=== PATIENT | male | born 1985 | race Caucasian/White ===

== ENCOUNTER 2016-11-26 09:30 | Emergency (ER) | payer BC, SELFPAY ==
[~2016-11-26 09:30] MED LIST: ACET-654 PO; ADVI200C5 PO; AUGM875T27 PO; BACITAB3 PO; KEPP1TAB2 PO; NICO21PAT TD; ZEST1TAB7 PO
[2016-11-26] MEDS ORDERED: NORCO, ANEXSIA 5/325MG TABLET (HYDROcodone/ACETAMINOPHEN) As Ordered ONE (10:23)
--- NOTE | 2016-11-26 11:21 | REP ---
LEFT SHOULDER, THREE VIEWS: HISTORY: Trauma. There is no acute fracture or dislocation. The joint spaces are normal in appearance. A calcified density is present inferomedial to the glenohumeral joint. This represents ligamentous or tendon calcification. IMPRESSION: Degenerative change as described above. Signed by Nicholas Dorsey MD 11/26/2016 11:25 A
--- NOTE | 2016-11-26 11:22 | REP ---
LUMBAR SPINE, FIVE VIEWS: HISTORY: Trauma. COMPARISON: 12/04/2012. There is no acute fracture. The intervertebral discs are normal in height. Osteophytes are present on L1-3. The facet joints are normal in appearance. There are 3 mm of retrolisthesis of L3 on S1. IMPRESSION: Degenerative change as described above. Signed by Nicholas Dorsey MD 11/26/2016 11:26 A
--- NOTE | 2016-11-26 11:28 | EDDOCDS ---
Physician Documentation [facility] Name: Ceasar Salgado Age: 31 yrs Sex: Male : 1985 Arrival Date: 11/26/2016 Time: 09:30 Bed PR Private MD: No Pcp Disposition: 11/26/16 11:15 Discharged to Home/Self Care. Impression: Pain in left shoulder, Low back pain - Acute, Other seizures - yesterday, seen in [facility] ER. - Condition is Stable. - Discharge Instructions: Shoulder Pain, Ftzm-gh-[id number], Back Pain, Adult, Chzg-wa-Jdon, Seizure, Adult, Sebf-fg-[id number]. - Prescriptions for [place] 5- 325 mg Oral Tablet - take 1 tablet by ORAL route every 6 hours As needed MDD: 4 tabs; 6 tablet. Mobic 7.5 mg Oral Tablet - take 1 tablet by ORAL route once daily take with food; 20 tablet. - Referral List Call for Appointment, Medication Reconciliation, Local Pharmacy Hours, Work Release Form - 2 day form. - [facility] ; When: 1 - 2 days; Reason: Recheck today's complaints, Continuance of care. Follow up: [facility]; When: Call to arrange an appointment; Reason: Further diagnostic work-up, Recheck today's complaints, Continuance of care. Follow up: Bob Piña; When: Call to arrange an appointment; Reason: Further diagnostic work-up, Recheck today's complaints, Continuance of care. - Problem is new. - Symptoms have improved. Historical: - Allergies: no known allergies; - Home Meds: 1. aspirin 325 mg Oral tab 1 tab once daily 2. Keppra 1500 mg Oral tab every 12 hours - PMHx: Atrial Fib; Pancreatitis; Seizure Disorder; - PSHx: left ankle; - Social history: Smoking status: Patient uses tobacco products, light tobacco smoker. No barriers to communication noted, The patient speaks fluent Hungarian, Speaks appropriately for age. - Family history: Not pertinent. - : The pt / caregiver states he / she is not on anticoagulants. Home medication list is obtained from the patient. - Exposure Risk Screening:: None identified. Vital Signs: 11/26 09:31 BP 145 / 76; Pulse 82; Resp 18; Temp 96.9; Pulse Ox 99% ; Weight 140.61 kg / 309.99 elp lbs; Height 6 ft. 6 in. (198.12 cm); 11:24 Pain 6/10; mcp 09:31 Body Mass Index 35.82 (140.61 kg, 198.12 cm) elp Procedures: 11:12 Fracture care/splinting: Splint applied to left shoulder using sling, applied by nurse. ef1 Examined by me, post splint application: neurovascular intact, 2+ distal pulses palpable, brisk capillary refill noted, Patient tolerated well. MDM: 10:13 Financial registration complete. mm15 10:21 HYDROcodone-acetaminophen 5 mg-325 mg 1 tabs PO once ordered. ef1 10:21 Ice Pack ordered. ef1 10:22 Shoulder, Complete Ordered. EDMS 10:22 Spine. Lumbosacral, Complete Ordered. EDMS 10:24 [facility] Payment Agreement was scanned into [employer] and attached to record. mm15 11:12 Sling ordered. ef1 Administered Medications: 10:24 Drug: HYDROcodone-acetaminophen 1 tabs [hydrocodone 5 mg-acetaminophen 325 mg tablet (1 mcp tabs)] Route: PO; 11:24 Follow up: Pain 6/10 Adult; Response: Pain is decreased mcp Signatures: Dispatcher [employer] EDMS Delphine Landin RN RN [facility] Armando Adorno RN RN mlb1 Madelin Nash, PA-C PAAndre ef1 Ishan Cline mm15 The chart was reviewed and I authenticate all verbal orders and agree with the evaluation and treatment provided.Attachments: 10:24 [facility] Payment Agreement mm15 MTDD
--- NOTE | 2016-11-26 11:28 | EDDOCDS ---
Nurse's Notes [facility] Name: Ceasar Salgado Age: 31 yrs Sex: Male : 1985 Arrival Date: 11/26/2016 Time: 09:30 Bed PR Private MD: No Pcp Diagnosis: Pain in left shoulder;Low back pain-Acute;Other seizures-yesterday, seen in [facility] ER Presentation: 11/26 09:46 Presenting complaint: Patient states: Left shoulder and lower back pain began after a mlb1 seizure yesterday. Adult Sepsis Screening: The patient does not have new or worsening altered mentation. Patient's respiratory rate is less than 22. Systolic blood pressure is greater than 100. Patient has a qSOFA score of 0- Negative Sepsis Screen. Suicide/Homicide risk assessment- the patient denies having any suicidal and/or homicidal ideations and does not present with any other emotional, behavioral or mental health complaints. 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 Transition of care: patient was not received from another setting of care. 09:46 Acuity: KATIE Level 4 mlb1 09:46 Method Of Arrival: Walkin/Carried/Asstd mlb1 Triage Assessment: 09:47 General: Appears in no apparent distress, Behavior is appropriate for age, cooperative. mlb1 Pain: Location: low back area, left shoulder Pain currently is 8 out of 10 on a pain scale. HIV screening NA for this visit Offered previously. Historical: - Allergies: no known allergies; - Home Meds: 1. aspirin 325 mg Oral tab 1 tab once daily 2. Keppra 1500 mg Oral tab every 12 hours - PMHx: Atrial Fib; Pancreatitis; Seizure Disorder; - PSHx: left ankle; - Social history: Smoking status: Patient uses tobacco products, light tobacco smoker. No barriers to communication noted, The patient speaks fluent Somali, Speaks appropriately for age. - Family history: Not pertinent. - : The pt / caregiver states he / she is not on anticoagulants. Home medication list is obtained from the patient. - Exposure Risk Screening:: None identified. Screenin:25 Screening information is obtained from the patient. Fall risk: No risks identified. mcp Assistance ADL's: requires no assistance with activities of daily living. Abuse/DV Screen: The patient / caregiver reports he/she is: not in a situation that causes fear, pain or injury. Nutritional screening: No deficits noted. Advance Directives: There is no active DNR order. home support is adequate. Assessment: 10:24 General: Appears uncomfortable, Behavior is cooperative. Pain: Location: left shoulder mcp and lower back Pain currently is 8 out of 10 on a pain scale. Neurological: No deficits noted. Respiratory: Airway is patent Respiratory effort is even, unlabored. Derm: Skin is pink, warm & dry. Musculoskeletal: Circulation, motion, and sensation intact Range of motion limited in left shoulder. 11:23 General: Appears uncomfortable, Behavior is cooperative. Pain: Location: back and left mcp shoulder Pain currently is 6 out of 10 on a pain scale. Neurological: No deficits noted. Respiratory: Airway is patent Respiratory effort is even, unlabored. Derm: Skin is pink, warm & dry. Musculoskeletal: Circulation, motion, and sensation intact. Vital Signs: 09:31 BP 145 / 76; Pulse 82; Resp 18; Temp 96.9; Pulse Ox 99% ; Weight 140.61 kg; Height 6 elp ft. 6 in. (198.12 cm); 11:24 Pain 6/10; mcp 09:31 Body Mass Index 35.82 (140.61 kg, 198.12 cm) [facility] Vitals: 09:31 Log In Time: November 26, 2016 at 09:25. [facility] ED Course: 09:31 Patient visited by Lacy Arriaza PCA. elp 09:31 No Pcp is Private Physician. elp 09:31 Patient moved to Waiting elp 09:32 Patient visited by Lacy Arriaza PCA. elp 09:32 Patient moved to Pre RCE elp 09:46 Patient visited by Armando Adorno RN. mlb1 09:47 Triage Initiated mlb1 09:48 Patient visited by Armando Adorno RN. mlb1 09:55 Patient moved to Triage 3 mcp 10:08 [facility] ef1 10:08 Leah Resendez MD is Attending Physician. ef1 10:09 Patient visited by Madelin Nash PA-C. ef1 10:24 [facility] [place] Agreement was scanned into [employer] and attached to record. mm15 10:25 Patient visited by Delphine Landin RN. mcp 10:25 The patient / caregiver is instructed regarding the plan of care and ED course. Patient mcp has correct armband on for positive identification. Bed in low position. Call light in reach. 10:26 Patient moved to 2 [facility] 10:44 Patient moved to Radiology [facility] 10:55 Patient moved to [place] [id number] 11:09 Patient visited by Madelin Nash PA-C. ef1 11:15 [facility] is Referral Physician. ef[facility]. ef1 11:15 Bob Piña is Referral Physician. ef1 11:16 Patient moved to PR1 / 25 [facility] 11:23 No IV's were initiated during this patient's visit. No procedures done that require mcp assistance. Sling applied to left arm. Patient with positive distal sensation and brisk distal capillary refill after application. 11:24 Patient visited by Delphine Landin RN. mcp Administered Medications: 10:24 Drug: HYDROcodone-acetaminophen 1 tabs [hydrocodone 5 mg-acetaminophen 325 mg tablet (1 mcp tabs)] Route: PO; 11:24 Follow up: Pain /10 Adult; Response: Pain is decreased mcp Order Results: There are currently no results for this order. Outcome: 11:15 Discharge ordered by Provider. ef1 11:24 Discharge Assessment: patient administered narcotics - yes. Pt provided with safe mcp discharge. The following High Risk Discharge criteria are identified: None. Discharged to home ambulatory. Condition: stable. Discharge instructions given to patient, Instructed on discharge instructions, follow up and referral plans. medication usage, no driving heavy equipment, no drinking with medication, Demonstrated understanding of instructions, medications, Pt was receptive of discharge instructions/ teaching. Prescriptions given X 2. No special radiology studies were completed. Property sent home with patient. 11:27 Patient left the ED. [facility] Signatures: Delphine Landin RN RN mcp Barney, Michael B, RN RN mlb1 Madelin Nash PA-C PA-C ef1 Jacinta Steele [facility] Ishan Cline mm15 Lacy Arriaza, MIS COMPUTER NETWORKING INSTRUCTOR elp MTDD
--- NOTE | 2016-11-28 12:28 | EDDOCDS ---
Physician Documentation [facility] Name: Ceasar Salgado Age: 31 yrs Sex: Male : 1985 Arrival Date: 11/26/2016 Time: 09:30 Bed PR Private MD: No Pcp Disposition: 11/26/16 11:15 Discharged to Home/Self Care. Impression: Pain in left shoulder, Low back pain - Acute, Other seizures - yesterday, seen in [facility] ER. - Condition is Stable. - Discharge Instructions: Shoulder Pain, Mqln-ph-Qork, Back Pain, Adult, Ynam-iv-Drlg, Seizure, Adult, Dewt-cd-Aulj. - Prescriptions for [place] 5- 325 mg Oral Tablet - take 1 tablet by ORAL route every 6 hours As needed MDD: 4 tabs; 6 tablet. Mobic 7.5 mg Oral Tablet - take 1 tablet by ORAL route once daily take with food; 20 tablet. - Referral List Call for Appointment, Medication Reconciliation, Local Pharmacy Hours, Work Release Form - 2 day form. - [facility] ; When: 1 - 2 days; Reason: Recheck today's complaints, Continuance of care. Follow up: [facility]; When: Call to arrange an appointment; Reason: Further diagnostic work-up, Recheck today's complaints, Continuance of care. Follow up: Bob Piña; When: Call to arrange an appointment; Reason: Further diagnostic work-up, Recheck today's complaints, Continuance of care. - Problem is new. - Symptoms have improved. Historical: - Allergies: no known allergies; - Home Meds: 1. aspirin 325 mg Oral tab 1 tab once daily 2. Keppra 1500 mg Oral tab every 12 hours - PMHx: Atrial Fib; Pancreatitis; Seizure Disorder; - PSHx: left ankle; - Social history: Smoking status: Patient uses tobacco products, light tobacco smoker. No barriers to communication noted, The patient speaks fluent Japanese, Speaks appropriately for age. - Family history: Not pertinent. - : The pt / caregiver states he / she is not on anticoagulants. Home medication list is obtained from the patient. - Exposure Risk Screening:: None identified. Vital Signs: 11/26 09:31 BP 145 / 76; Pulse 82; Resp 18; Temp 96.9; Pulse Ox 99% ; Weight 140.61 kg / 309.99 elp lbs; Height 6 ft. 6 in. (198.12 cm); 11:24 Pain 6/10; mcp 11:29 BP 165 / 89; Pulse 76; Resp 18; Temp 97.1; Pulse Ox 97% ; Pain 5/10; cmb 09:31 Body Mass Index 35.82 (140.61 kg, 198.12 cm) elp Procedures: 11:12 Fracture care/splinting: Splint applied to left shoulder using sling, applied by nurse. ef1 Examined by me, post splint application: neurovascular intact, 2+ distal pulses palpable, brisk capillary refill noted, Patient tolerated well. MDM: 10:13 Financial registration complete. mm15 10:21 HYDROcodone-acetaminophen 5 mg-325 mg 1 tabs PO once ordered. ef1 10:21 Ice Pack ordered. ef1 10:22 Shoulder, Complete Ordered. EDMS 10:22 Spine. Lumbosacral, Complete Ordered. EDMS 10:24 [facility] Payment Agreement was scanned into [employer] and attached to record. mm15 11:12 Sling ordered. ef1 13:39 T-Sheet-- Draft Copy was scanned into [employer] and attached to record. gb 15:37 Radiology Report was scanned into [employer] and attached to record. gb Administered Medications: 10:24 Drug: HYDROcodone-acetaminophen 1 tabs [hydrocodone 5 mg-acetaminophen 325 mg tablet (1 mcp tabs)] Route: PO; 11:24 Follow up: Pain 6/10 Adult; Response: Pain is decreased mcp Signatures: Dispatcher [employer] EDMS Delphine Landin RN RN mcp Barnhardt, Gloria, Reg Reg Armando Bauer RN RN mlb1 Madelin Nash, PAPaulaC PAPaulaC ef1 Ishan Cline mm15 The chart was reviewed and I authenticate all verbal orders and agree with the evaluation and treatment provided.Attachments: 10:24 [facility] Payment Agreement mm15 13:39 T-Sheet-- Draft Copy gb Chart Complete MTDD
--- NOTE | 2016-11-28 12:28 | EDDOCDS ---
Nurse's Notes [facility] Name: Ceasar Salgado Age: 31 yrs Sex: Male : 1985 Arrival Date: 11/26/2016 Time: 09:30 Bed PR Private MD: No Pcp Diagnosis: Pain in left shoulder;Low back pain-Acute;Other seizures-yesterday, seen in [facility] ER Presentation: 11/26 09:46 Presenting complaint: Patient states: Left shoulder and lower back pain began after a mlb1 seizure yesterday. Adult Sepsis Screening: The patient does not have new or worsening altered mentation. Patient's respiratory rate is less than 22. Systolic blood pressure is greater than 100. Patient has a qSOFA score of 0- Negative Sepsis Screen. Suicide/Homicide risk assessment- the patient denies having any suicidal and/or homicidal ideations and does not present with any other emotional, behavioral or mental health complaints. Status: Patient is not a service order taker or dependent. Transition of care: patient was not received from another setting of care. 09:46 Acuity: KATIE Level 4 mlb1 09:46 Method Of Arrival: Walkin/Carried/Asstd mlb1 Triage Assessment: 09:47 General: Appears in no apparent distress, Behavior is appropriate for age, cooperative. mlb1 Pain: Location: low back area, left shoulder Pain currently is 8 out of 10 on a pain scale. HIV screening NA for this visit Offered previously. Historical: - Allergies: no known allergies; - Home Meds: 1. aspirin 325 mg Oral tab 1 tab once daily 2. Keppra 1500 mg Oral tab every 12 hours - PMHx: Atrial Fib; Pancreatitis; Seizure Disorder; - PSHx: left ankle; - Social history: Smoking status: Patient uses tobacco products, light tobacco smoker. No barriers to communication noted, The patient speaks fluent Somali, Speaks appropriately for age. - Family history: Not pertinent. - : The pt / caregiver states he / she is not on anticoagulants. Home medication list is obtained from the patient. - Exposure Risk Screening:: None identified. Screenin:25 Screening information is obtained from the patient. Fall risk: No risks identified. mcp Assistance ADL's: requires no assistance with activities of daily living. Abuse/DV Screen: The patient / caregiver reports he/she is: not in a situation that causes fear, pain or injury. Nutritional screening: No deficits noted. Advance Directives: There is no active DNR order. home support is adequate. Assessment: 10:24 General: Appears uncomfortable, Behavior is cooperative. Pain: Location: left shoulder mcp and lower back Pain currently is 8 out of 10 on a pain scale. Neurological: No deficits noted. Respiratory: Airway is patent Respiratory effort is even, unlabored. Derm: Skin is pink, warm & dry. Musculoskeletal: Circulation, motion, and sensation intact Range of motion limited in left shoulder. 11:23 General: Appears uncomfortable, Behavior is cooperative. Pain: Location: back and left mcp shoulder Pain currently is 6 out of 10 on a pain scale. Neurological: No deficits noted. Respiratory: Airway is patent Respiratory effort is even, unlabored. Derm: Skin is pink, warm & dry. Musculoskeletal: Circulation, motion, and sensation intact. Vital Signs: 09:31 BP 145 / 76; Pulse 82; Resp 18; Temp 96.9; Pulse Ox 99% ; Weight 140.61 kg; Height 6 elp ft. 6 in. (198.12 cm); 11:24 Pain 6/10; mcp 11:29 BP 165 / 89; Pulse 76; Resp 18; Temp 97.1; Pulse Ox 97% ; Pain 5/10; cmb 09:31 Body Mass Index 35.82 (140.61 kg, 198.12 cm) [facility] Vitals: 09:31 Log In Time: November 26, 2016 at 09:25. [facility] ED Course: 09:31 Patient visited by Lacy Arriaza PCA. elp 09:31 No Pcp is Private Physician. elp 09:31 Patient moved to Waiting elp 09:32 Patient visited by Lacy Arriaza PCA. elp 09:32 Patient moved to Pre RCE elp 09:46 Patient visited by Armando Adorno, CAMILA. mlb1 09:47 Triage Initiated mlb1 09:48 Patient visited by Armando Adorno, CAMILA. mlb1 09:55 Patient moved to Triage 3 mcp 10:08 Madelin [facility]C [facility] ef1 10:08 Leah Resendez MD is Attending Physician. ef1 10:09 Patient visited by Madelin Nash PA-C. ef1 10:24 [facility] Payment Agreement was scanned into [employer] and attached to record. mm15 10:25 Patient visited by Delphine Landin RN. mcp 10:25 The patient / caregiver is instructed regarding the plan of care and ED course. Patient mcp has correct armband on for positive identification. Bed in low position. Call light in reach. 10:26 Patient moved to TR2 mcp 10:44 Patient moved to [place] [id number] 10:55 Patient moved to [place] [id number] 11:09 Patient visited by Madelin Nash PA-C. ef1 11:15 [facility] is Referral Physician. ef1 11[facility]. ef1 11:15 Bob Piña is Referral Physician. ef1 11:16 Patient moved to PR [facility] 11:23 No IV's were initiated during this patient's visit. No procedures done that require mcp assistance. Sling applied to left arm. Patient with positive distal sensation and brisk distal capillary refill after application. 11:24 Patient visited by Delphine Landin RN. mcp 11:52 Shoulder, Complete Returned. EDMS 11:52 Spine. Lumbosacral, Complete Returned. EDMS 13:39 T-Sheet-- Draft Copy was scanned into [employer] and attached to record. gb 15:37 Radiology Report was scanned into [employer] and attached to record. gb Administered Medications: 10:24 Drug: HYDROcodone-acetaminophen 1 tabs [hydrocodone 5 mg-acetaminophen 325 mg tablet (1 mcp tabs)] Route: PO; 11:24 Follow up: Pain 6/10 Adult; Response: Pain is decreased mcp Order Results: Radiology Order: Shoulder, Complete Test: Shoulder, Complete REASON FOR EXAMINATION: Trauma; LEFT SHOULDER, THREE VIEWS:; ; HISTORY: Trauma.; ; There is no acute fracture or dislocation. The joint spaces are normal in; appearance. A calcified density is present inferomedial to the glenohumeral; joint. This represents ligamentous or tendon calcification.; ; IMPRESSION:; ; Degenerative change as described above.; ; ; Signed by; Nicholas Dorsey MD 11/26/2016 11:25 A; Radiology Order: Spine. Lumbosacral, Complete Test: Spine. Lumbosacral, Complete REASON FOR EXAMINATION: Trauma; LUMBAR SPINE, FIVE VIEWS:; ; HISTORY: Trauma.; ; COMPARISON: 12/04/2012.; ; There is no acute fracture. The intervertebral discs are normal in height.; Osteophytes are present on L1-3. The facet joints are normal in appearance.; There are 3 mm of retrolisthesis of L3 on S1.; ; IMPRESSION:; ; Degenerative change as described above.; ; ; Signed by; Nicholas Dorsey MD 11/26/2016 11:26 A; Outcome: 11:15 Discharge ordered by Provider. ef1 11:24 Discharge Assessment: patient administered narcotics - yes. Pt provided with safe [facility] discharge. The following High Risk Discharge criteria are identified: None. Discharged to home ambulatory. Condition: stable. Discharge instructions given to patient, Instructed on discharge instructions, follow up and referral plans. medication usage, no driving heavy equipment, no drinking with medication, Demonstrated understanding of instructions, medications, Pt was receptive of discharge instructions/ teaching. Prescriptions given X 2. No special radiology studies were completed. Property sent home with patient. 11:27 Patient left the ED. [facility] Signatures: Dispatcher [employer] Delphine Bai RN RN Key Cabrera, Armando Lazo RN RN mlb1 Madelin Nash, PA-C PA-C ef1 Jacinta Steele bh4 Cyndee De Jesus Marlynn mm15 Lacy Arriaza PCA TRAFFIC INSPECTOR elp Chart Complete MTDD
--- NOTE | 2016-11-28 12:28 | EDDOCDS ---
Physician Documentation [facility] Name: Ceasar Salgado Age: 31 yrs Sex: Male : 1985 Arrival Date: 11/26/2016 Time: 09:30 Bed PR Private MD: No Pcp Disposition: 11/26/16 11:15 Discharged to Home/Self Care. Impression: Pain in left shoulder, Low back pain - Acute, Other seizures - yesterday, seen in [facility] ER. - Condition is Stable. - Discharge Instructions: Shoulder Pain, Fpup-ij-Cbaw, Back Pain, Adult, Jwyb-co-Fwsa, Seizure, Adult, Fkoi-hc-Cpke. - Prescriptions for Colome 5- 325 mg Oral Tablet - take 1 tablet by ORAL route every 6 hours As needed MDD: 4 tabs; 6 tablet. Mobic 7.5 mg Oral Tablet - take 1 tablet by ORAL route once daily take with food; 20 tablet. - Referral List Call for Appointment, Medication Reconciliation, Local Pharmacy Hours, Work Release Form - 2 day form. - [facility]: [facility] ; When: 1 - 2 days; Reason: Recheck today's complaints, Continuance of care. Follow up: [facility]; When: Call to arrange an appointment; Reason: Further diagnostic work-up, Recheck today's complaints, Continuance of care. Follow up: [facility]; When: Call to arrange an appointment; Reason: Further diagnostic work-up, Recheck today's complaints, Continuance of care. - Problem is new. - Symptoms have improved. Historical: - Allergies: no known allergies; - Home Meds: 1. aspirin 325 mg Oral tab 1 tab once daily 2. Keppra 1500 mg Oral tab every 12 hours - PMHx: Atrial Fib; Pancreatitis; Seizure Disorder; - PSHx: left ankle; - Social history: Smoking status: Patient uses tobacco products, light tobacco smoker. No barriers to communication noted, The patient speaks fluent Ukrainian, Speaks appropriately for age. - Family history: Not pertinent. - : The pt / caregiver states he / she is not on anticoagulants. Home medication list is obtained from the patient. - Exposure Risk Screening:: None identified. Vital Signs: 11/26 09:31 BP 145 / 76; Pulse 82; Resp 18; Temp 96.9; Pulse Ox 99% ; Weight 140.61 kg / 309.99 elp lbs; Height 6 ft. 6 in. (198.12 cm); 11:24 Pain 6/10; mcp 11:29 BP 165 / 89; Pulse 76; Resp 18; Temp 97.1; Pulse Ox 97% ; Pain 5/10; cmb 09:31 Body Mass Index 35.82 (140.61 kg, 198.12 cm) elp Procedures: 11:12 Fracture care/splinting: Splint applied to left shoulder using sling, applied by nurse. ef1 Examined by me, post splint application: neurovascular intact, 2+ distal pulses palpable, brisk capillary refill noted, Patient tolerated well. MDM: 10:13 Financial registration complete. mm15 10:21 HYDROcodone-acetaminophen 5 mg-325 mg 1 tabs PO once ordered. ef1 10:21 Ice Pack ordered. ef1 10:22 Shoulder, Complete Ordered. EDMS 10:22 Spine. Lumbosacral, Complete Ordered. EDMS 10:24 [facility] Payment Agreement was scanned into [employer] and attached to record. mm15 11:12 Sling ordered. ef1 13:39 T-Sheet-- Draft Copy was scanned into [employer] and attached to record. gb 15:37 Radiology Report was scanned into [employer] and attached to record. gb Administered Medications: 10:24 Drug: HYDROcodone-acetaminophen 1 tabs [hydrocodone 5 mg-acetaminophen 325 mg tablet (1 mcp tabs)] Route: PO; 11:24 Follow up: Pain 6/10 Adult; Response: Pain is decreased mcp Signatures: Dispatcher [employer] EDMS Delphine Landin RN RN mcp Barnhardt, Gloria, Reg Reg Armando Bauer RN RN mlb1 Madelin Nash, PAPaulaC PAPaulaC ef1 Ishan Cline mm15 The chart was reviewed and I authenticate all verbal orders and agree with the evaluation and treatment provided.Attachments: 10:24 [facility] Payment Agreement mm15 13:39 T-Sheet-- Draft Copy gb Chart Complete MTDD
== END 2016-11-26 11:27 | disposition home or self-care (01) ==
LOC: M ED 09:30
DX: M54.5 Low back pain (principal); M25.512 Pain in left shoulder; G40.909 Epilepsy, unspecified, not intractable, without status epilepticus; I48.91 Unspecified atrial fibrillation; K86.1 Other chronic pancreatitis; F17.210 Nicotine dependence, cigarettes, uncomplicated; Z79.82 Long term (current) use of aspirin; Z79.899 Other long term (current) drug therapy

== ENCOUNTER → 2017-01-12 | Outpatient (CLI) | payer OTHER ==
[2017-01-12 11:29] LABS: BASO % 0.5 % (0.0-1.0); EOS # 0.2 K/mm3 (0.0-0.50); EOS % 2.7 % (0.0-3.0); LARGE UNSTAINED CELL # 0.1 K/mm3 (0.0-0.4); LARGE UNSTAINED CELL % 1.6 % (0.0-4.0); LYMPH # 1.4 K/mm3 (1.5-4.5); MEAN CORPUSCULAR HEMOGLOBIN 30.8 pg (27.0-33.0); MEAN CORPUSCULAR HGB CONC 34.7 g/dl (32.0-36.5); MEAN CORPUSCULAR VOLUME 88.7 fl (80.0-96.0); MONO # 0.3 K/mm3 (0.0-0.8); MONO % 4.7 % (0.0-5.0); NEUTROPHILS # 5.4 K/mm3 (1.8-7.7); NEUTROPHILS % 73.5 % (36.0-66.0); PLATELET COUNT, AUTOMATED 194 k/mm3 (150-450); RED CELL DISTRIBUTION WIDTH 13.2 % (11.5-14.5); WHITE BLOOD COUNT 7.4 K/mm3 (4.0-10.0)
[2017-01-12 12:00] LABS: ALBUMIN 3.9 GM/DL (3.2-5.2); ALBUMIN/GLOBULIN RATIO 1.22 (1.00-1.93); ALKALINE PHOSPHATASE 65 U/L (45-117); ALT/SGPT 168 U/L (12-78); ANION GAP 10 MEQ/L (8-16); AST/SGOT 78 U/L (15-37); BILIRUBIN,TOTAL 0.9 MG/DL (0.2-1.0); BLOOD UREA NITROGEN 14 MG/DL (7-18); CALCIUM LEVEL 9.2 MG/DL (8.5-10.1); CARBON DIOXIDE LEVEL 29 MEQ/L (21-32); CHLORIDE LEVEL 105 MEQ/L (98-107); CHOLESTEROL LEVEL 178 MG/DL (<200); CREATININE FOR GFR 0.96 MG/DL (0.70-1.30); FREE T4 1.04 NG/DL (0.76-1.46); GLOMERULAR FILTRATION RATE > 60.0 (>60); GLUCOSE, FASTING 100 MG/DL (70-105); POTASSIUM SERUM 4.4 MEQ/L (3.5-5.1); SODIUM LEVEL 144 MEQ/L (136-145); TOTAL PROTEIN 7.1 GM/DL (6.4-8.2); TRIGLYCERIDES LEVEL 241 MG/DL (<150)
== END ==
LOC: M LAB 10:51
PROVIDERS: ATTEND Nurse Practitioner Family
DX: Z00.00 Encounter for general adult medical examination without abnormal findings (principal); E66.9 Obesity, unspecified; Z13.220 Encounter for screening for lipoid disorders; F32.9 Major depressive disorder, single episode, unspecified

== ENCOUNTER 2017-05-06 09:28 | Emergency (ER) | payer OTHER ==
[~2017-05-06] VITALS: Ht 200.7 cm; Wt 388.0 kg
[~2017-05-06 09:28] MED LIST changes: -ACET-654 PO; +ACET1TAB17 PO; -AUGM875T27 PO; +AUGM875T28 PO; +BACITAB PO; -BACITAB3 PO
[2017-05-06] MEDS ORDERED: ZOLO25TA PO (09:49)
[2017-05-06] MEDS ORDERED: IBUP-1022 PO (10:50)
[2017-05-06] MEDS ORDERED: CYCL10TA PO (10:50)
[2017-05-06 11:03] VITALS: BP 148/71
== END 2017-05-06 11:04 | disposition home or self-care (01) ==
LOC: M ED 10:52
DX: M54.5 Low back pain (principal); F17.200 Nicotine dependence, unspecified, uncomplicated; Z79.899 Other long term (current) drug therapy

== ENCOUNTER → 2017-06-12 | Outpatient (REF) | payer OTHER ==
[~2017-06-12] MED LIST changes: +ASPI81CH PO; +CYCL10TA PO; +IBUP-1022 PO; +MECL-68 PO; +VALI5TAB PO; +ZOLO25TA PO
[2017-06-12 16:41] LABS: ALBUMIN 3.8 GM/DL (3.2-5.2); ALBUMIN/GLOBULIN RATIO 1.19 (1.00-1.93); ALKALINE PHOSPHATASE 67 U/L (45-117); ALT/SGPT 159 U/L (12-78); ANION GAP 7 MEQ/L (8-16); AST/SGOT 75 U/L (15-37); BILIRUBIN,TOTAL 0.4 MG/DL (0.2-1.0); BLOOD UREA NITROGEN 12 MG/DL (7-18); CALCIUM LEVEL 8.5 MG/DL (8.5-10.1); CARBON DIOXIDE LEVEL 28 MEQ/L (21-32); CHLORIDE LEVEL 111 MEQ/L (98-107); CREATININE FOR GFR 0.84 MG/DL (0.70-1.30); FERRITIN 127 NG/ML (26-388); GAMMA GLUTAMYLTRANSPEPTIDASE 108 U/L (15-85); GLOMERULAR FILTRATION RATE > 60.0 (>60); GLUCOSE, FASTING 90 MG/DL (70-105); POTASSIUM SERUM 4.1 MEQ/L (3.5-5.1); SODIUM LEVEL 146 MEQ/L (136-145)
== END ==
LOC: M SFHCPLAZ 13:59
PROVIDERS: ATTEND Nurse Practitioner Family
DX: R79.89 Other specified abnormal findings of blood chemistry (principal)

== ENCOUNTER 2017-06-30 08:34 | Emergency (ER) | payer OTHER ==
[~2017-06-30] VITALS: Ht 198.1 cm; Wt 185.0 kg
[~2017-06-30 08:34] MED LIST changes: -ASPI81CH PO; -MECL-68 PO; -VALI5TAB PO
[2017-06-30] MEDS ORDERED: ASPI81CH PO (08:56)
[2017-06-30] MEDS ORDERED: NS 1,000 ML IV ONE ×2 (09:15→10:45)
[2017-06-30] MEDS ORDERED: MECLIZINE 25 MG TABLET PO ONE (09:15)
[2017-06-30 09:47] LABS: BASO % 0.6 % (0.0-1.0); EOS # 0.1 K/mm3 (0.0-0.50); EOS % 2.3 % (0.0-3.0); LARGE UNSTAINED CELL # 0.1 K/mm3 (0.0-0.4); LARGE UNSTAINED CELL % 1.9 % (0.0-4.0); LYMPH # 1.2 K/mm3 (1.5-4.5); LYMPH % 23.7 % (24.0-44.0); MEAN CORPUSCULAR HEMOGLOBIN 30.7 pg (27.0-33.0); MEAN CORPUSCULAR HGB CONC 34.3 g/dl (32.0-36.5); MEAN CORPUSCULAR VOLUME 89.6 fl (80.0-96.0); MONO # 0.3 K/mm3 (0.0-0.8); MONO % 5.8 % (0.0-5.0); NEUTROPHILS # 3.3 K/mm3 (1.8-7.7); NEUTROPHILS % 65.8 % (36.0-66.0); PLATELET COUNT, AUTOMATED 184 k/mm3 (150-450); WHITE BLOOD COUNT 5.1 K/mm3 (4.0-10.0)
[2017-06-30 10:07] LABS: METHADONE URINE NEGATIVE (NEGATIVE)
[2017-06-30 10:18] LABS: ALBUMIN 3.8 GM/DL (3.2-5.2); ALBUMIN/GLOBULIN RATIO 1.09 (1.00-1.93); ALKALINE PHOSPHATASE 65 U/L (45-117); ALT/SGPT 172 U/L (12-78); ANION GAP 7 MEQ/L (8-16); AST/SGOT 78 U/L (15-37); BILIRUBIN,DIRECT 0.2 MG/DL (0.0-0.2); BILIRUBIN,TOTAL 0.6 MG/DL (0.2-1.0); BLOOD UREA NITROGEN 12 MG/DL (7-18); CALCIUM LEVEL 8.5 MG/DL (8.5-10.1); CARBON DIOXIDE LEVEL 27 MEQ/L (21-32); CHLORIDE LEVEL 110 MEQ/L (98-107); CREATININE FOR GFR 0.96 MG/DL (0.70-1.30); FREE T4 0.98 NG/DL (0.76-1.46); GLOMERULAR FILTRATION RATE > 60.0 (>60); GLUCOSE, FASTING 105 MG/DL (70-105); POTASSIUM SERUM 4.1 MEQ/L (3.5-5.1); SODIUM LEVEL 144 MEQ/L (136-145); TOTAL PROTEIN 7.3 GM/DL (6.4-8.2)
--- NOTE | 2017-06-30 10:33 | REP ---
CT Head without contrast HISTORY: Peripheral visual loss COMPARISON: 12/08/2015 There is no intraparenchymal hemorrhage, acute infarct, mass or midline shift. The ventricular system is normal in appearance. There is no extra cerebral collection. There is no fracture. The visualized sinuses are clear. IMPRESSION: There is no intracranial lesion. Signed by Nicholas Dorsey MD 06/30/2017 10:24 A
[2017-06-30] MEDS ORDERED: diazePAM 5 MG TAB PO ONE (10:45)
[2017-06-30] MEDS ORDERED: MECL-68 PO (11:39)
[2017-06-30] MEDS ORDERED: VALI5TAB PO (11:39)
[2017-06-30 11:45] VITALS: BP 157/76
--- NOTE | 2017-07-02 08:54 | ECGEPIP ---
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
== END 2017-06-30 11:46 | disposition home or self-care (01) ==
LOC: M ED 08:34
DX: R42 Dizziness and giddiness (principal); E86.0 Dehydration; G43.909 Migraine, unspecified, not intractable, without status migrainosus; I10 Essential (primary) hypertension; F17.200 Nicotine dependence, unspecified, uncomplicated; Z79.82 Long term (current) use of aspirin; Z79.899 Other long term (current) drug therapy

== ENCOUNTER → 2017-06-30 | Outpatient (CLI) | payer OTHER ==
--- NOTE | 2017-06-30 09:53 | REP ---
Right upper quadrant sonography: History: Elevated liver function studies. Comparison study April 20, 2015. Findings: Scanning through right upper quadrant of the abdomen demonstrates a normal sized thin-walled gallbladder without evidence of stone or polyp. Common bile duct is normal measuring 0.5 cm in greatest diameter. There is evidence of fatty infiltration of the liver with areas of fat sparing near the gallbladder. Limited views of the pancreas show no abnormality. The pancreas is largely obscured by abdominal gas. There is no evidence of ascites or right renal abnormality. The right kidney measures 13.3 x 6.5 x 5.9 cm. Impression: Evidence of fatty infiltration of the liver. Otherwise unremarkable right upper quadrant sonogram. Signed by Angel Maya MD 06/30/2017 12:13 P
== END ==
LOC: M RAD 07:48
PROVIDERS: ATTEND Nurse Practitioner Family
DX: K76.0 Fatty (change of) liver, not elsewhere classified (principal)

== ENCOUNTER 2017-09-22 06:19 | Emergency (ER) | payer OTHER ==
[~2017-09-22] VITALS: Ht 200.7 cm; Wt 159.1 kg
[~2017-09-22 06:19] MED LIST changes: +ASPI81CH PO; +MECL-68 PO; +VALI5TAB PO
[2017-09-22] MEDS ORDERED: NS 1,000 ML IV ONE (07:00)
[2017-09-22] MEDS ORDERED: ONDANSETRON 4MG/2ML VIAL (J2405) IV ONE (07:00)
[2017-09-22] MEDS ORDERED: diphenhydrAMINE INJ 50MG/ML VIAL (J1200) IV ONE (07:00)
[2017-09-22] MEDS ORDERED: KETOROLAC 30 MG/ML VIAL (J1885) IV ONE (07:00)
--- NOTE | 2017-09-22 08:00 | REPUSA ---
CLINICAL HISTORY: Headaches. TECHNIQUE: Multiple axial brain CT scan sections were obtained from base to vertex without contrast a dministration. COMMENTS: The study shows normal configuration of sella turcica. There are no intra or extra-axial collections. There is no mass effect or midline shift. There is no evidence of hematoma formation. No hydrocephal us is present. No abnormal calcifications are noted. No significant abnormalities are seen either in the posterior fossa or supratentorial compartment. The sinuses and mastoid air cells are patent. IMPRESSION: No change is noted since the prior exam performed on 06/30/2017. No evidence of acute intracranial pathology. Thank you for your kind referral of this patient.
[2017-09-22] MEDS ORDERED: ZOFR4TAB3 PO (08:21)
[2017-09-22 08:26] VITALS: BP 139/84
== END 2017-09-22 08:31 | disposition home or self-care (01) ==
LOC: M ED 06:19
DX: R51 Headache (principal); R19.7 Diarrhea, unspecified; R11.0 Nausea; I10 Essential (primary) hypertension; G40.909 Epilepsy, unspecified, not intractable, without status epilepticus; F41.9 Anxiety disorder, unspecified; F32.9 Major depressive disorder, single episode, unspecified; F17.200 Nicotine dependence, unspecified, uncomplicated; Z79.899 Other long term (current) drug therapy; Z79.82 Long term (current) use of aspirin
CPT/HCPCS: 70450; 96361; 96374; 96375; 99284; J1200; J1885; J2405

== ENCOUNTER 2018-03-04 21:16 | Emergency (ER) | payer OTHER ==
[2018-03-04 21:45] LABS: KETONE, URINE AUTO RFX NEGATIVE (NEGATIVE); MUCUS, URINE RFX SMALL (NEGATIVE); NITRITE, URINE AUTO RFX NEGATIVE (NEGATIVE); RBC, URINE AUTO RFX 1 /HPF (0-3); SPECIFIC GRAVITY UR AUTO RFX 1.028 (1.002-1.035); SQUAM EPITHELIAL CELL UR AURFX 2 /HPF (0-6); WBC, URINE AUTO RFX 1 /HPF (0-3)
[2018-03-04 22:02] LABS: LEUKOCYTE ESTERASE UR AUTO RFX 1+ (NEGATIVE)
[2018-03-04] MEDS: NS 1,000 ML IV (22:46)
[2018-03-04 22:53] LABS: BASO % 0.4 % (0.0-1.0); EOS # 0.2 10^3/uL (0.0-0.50); EOS % 3.1 % (0.0-3.0); HEMATOCRIT 45.4 % (42.0-52.0); HEMOGLOBIN 15.2 g/dl (13.5-17.5); IMMATURE GRANULOCYTE % 0.5 % (0-3.0); LYMPH # 2.3 10^3/uL (1.5-4.5); LYMPH % 30.8 % (24.0-44.0); MEAN CORPUSCULAR HEMOGLOBIN 29.7 pg (27.0-33.0); MEAN CORPUSCULAR HGB CONC 33.5 g/dl (32.0-36.5); MEAN CORPUSCULAR VOLUME 88.7 fl (80.0-96.0); MONO # 0.4 10^3/uL (0.0-0.8); MONO % 5.5 % (0.0-5.0); NEUTROPHILS # 4.5 10^3/uL (1.8-7.7); NEUTROPHILS % 59.7 % (36.0-66.0); PLATELET COUNT, AUTOMATED 198 10^3/uL (150-450); RED BLOOD COUNT 5.12 10^6/uL (4.30-6.10); RED CELL DISTRIBUTION WIDTH 12.6 % (11.5-14.5); WHITE BLOOD COUNT 7.5 10^3/uL (4.0-10.0)
[2018-03-04] MEDS: PANTOPRAZOLE 40MG INJ (PROTONIX) (C9113) IV (22:55)
[2018-03-04] MEDS: KETOROLAC 30 MG/ML VIAL (J1885) IV (23:00)
[2018-03-04] MEDS: ONDANSETRON 4MG/2ML VIAL (J2405) IV (23:00)
[2018-03-04 23:04] LABS: INR 0.98; PROTHROMBIN TIME 13.1 SECONDS (12.4-14.5)
[2018-03-04 23:12] LABS: ALBUMIN/GLOBULIN RATIO 1.18 (1.00-1.93); ALKALINE PHOSPHATASE 66 U/L (45-117); ALT/SGPT 152 U/L (12-78); AMYLASE 52 U/L (25-115); ANION GAP 3 MEQ/L (8-16); AST/SGOT 78 U/L (7-37); BILIRUBIN,DIRECT 0.1 MG/DL (0.0-0.2); BILIRUBIN,TOTAL 0.4 MG/DL (0.2-1.0); BLOOD UREA NITROGEN 17 MG/DL (7-18); CALCIUM LEVEL 8.9 MG/DL (8.5-10.1); CARBON DIOXIDE LEVEL 31 MEQ/L (21-32); CHLORIDE LEVEL 108 MEQ/L (98-107); CREATININE FOR GFR 0.97 MG/DL (0.70-1.30); GLOMERULAR FILTRATION RATE > 60.0 (>60); GLUCOSE, FASTING 161 MG/DL (70-100); LIPASE 243 U/L (73-393); SODIUM LEVEL 142 MEQ/L (136-145); TOTAL PROTEIN 7.4 GM/DL (6.4-8.2)
== END 2018-03-05 | disposition home or self-care (01) ==
LOC: M ED 03-05
DX: R10.9 Unspecified abdominal pain (principal); F17.200 Nicotine dependence, unspecified, uncomplicated; Z86.69 Personal history of other diseases of the nervous system and sense organs; Z79.899 Other long term (current) drug therapy; Z79.82 Long term (current) use of aspirin
CPT/HCPCS: C9113

== ENCOUNTER 2018-07-21 11:51 | Emergency (ER) | payer OTHER ==
[2018-07-21] MEDS: ONDANSETRON 4 MG ORAL DISINTEGRATING TAB (Q0162 PER 1MG) PO (13:10)
[2018-07-21] MEDS: IBUPROFEN 800 MG TAB PO (14:24)
== END 2018-07-21 14:37 | disposition home or self-care (01) ==
LOC: M ED 11:51
DX: G43.909 Migraine, unspecified, not intractable, without status migrainosus (principal); R19.7 Diarrhea, unspecified; I10 Essential (primary) hypertension; F41.9 Anxiety disorder, unspecified; F33.9 Major depressive disorder, recurrent, unspecified; R56.9 Unspecified convulsions; F17.210 Nicotine dependence, cigarettes, uncomplicated
CPT/HCPCS: Q0162

== ENCOUNTER 2018-08-08 13:48 | Emergency (ER) | payer OTHER ==
[2018-08-08] MEDS: LIDOCAINE VISCOUS 2% SOLN 15ML UDC SSP (14:30)
== END 2018-08-08 14:38 | disposition home or self-care (01) ==
LOC: M ED 13:48
DX: K02.9 Dental caries, unspecified (principal); S02.5XXA Fracture of tooth (traumatic), initial encounter for closed fracture; X58.XXXA Exposure to other specified factors, initial encounter; Y92.89 Other specified places as the place of occurrence of the external cause; I10 Essential (primary) hypertension; F41.9 Anxiety disorder, unspecified; F32.9 Major depressive disorder, single episode, unspecified; R56.9 Unspecified convulsions; Z79.899 Other long term (current) drug therapy
CPT/HCPCS: 99282

== ENCOUNTER → 2019-12-21 | Outpatient (REF) | payer OTHER ==
[~2019-12-21] MED LIST changes: -ACET1TAB17 PO; +ACET1TAB55 PO; -ASPI81CH PO; +ASPI81CH49 PO; +KETO10TAB PO; +LIDVISCBTL SSP; -MECL-68 PO; +MECL1TAB31 PO; +NICO21DI3 TD; -NICO21PAT TD; +ZOFR4TAB14 PO
[2019-12-21 19:31] LABS: INFLUENZA A AMPLIFICATION POSITIVE (NEGATIVE); INFLUENZA B AMPLIFICATION NEGATIVE (NEGATIVE)
== END ==
LOC: M LAB REF 18:34
PROVIDERS: ATTEND Physician Assistant
DX: J10.1 Influenza due to other identified influenza virus with other respiratory manifestations (principal)

== ENCOUNTER → 2020-08-29 | Outpatient (CLI) | payer OTHER ==
[~2020-08-29] MED LIST changes: +CYCL-707 PO; -CYCL10TA PO
[2020-08-29 12:47] LABS: ALT/SGPT 33 U/L (12-78); BILIRUBIN,TOTAL 0.6 MG/DL (0.2-1.0); BLOOD UREA NITROGEN 14 MG/DL (7-18); CALCIUM LEVEL 9.4 MG/DL (8.5-10.1); CARBON DIOXIDE LEVEL 28 MEQ/L (21-32); CHLORIDE LEVEL 109 MEQ/L (98-107); CHOLESTEROL LEVEL 160 MG/DL (<200); CHOLESTEROL RISK RATIO 4.705 (<5); CREATININE FOR GFR 0.84 MG/DL (0.70-1.30); FREE T4 1.08 NG/DL (0.76-1.46); GLOMERULAR FILTRATION RATE > 60.0 (>60); GLUCOSE, FASTING 79 MG/DL (70-100); HDL CHOLESTEROL 34 MG/DL (>40); LDL CHOLESTEROL 93 MG/DL (<100); NON-HDL-C 126 MG/DL; POTASSIUM SERUM 4.5 MEQ/L (3.5-5.1); SODIUM LEVEL 141 MEQ/L (136-145); THYROID STIMULATING HORMONE 0.763 uIU/ML (0.358-3.740); TOTAL 25(OH) VITAMIN D 27.3 NG/ML (30.0-100.0); TOTAL PROTEIN 7.2 GM/DL (6.4-8.2); TRIGLYCERIDES LEVEL 165 MG/DL (<150)
== END ==
LOC: M WUC 09:47
PROVIDERS: ATTEND Physician Assistant
DX: Z00.00 Encounter for general adult medical examination without abnormal findings (principal); Z13.220 Encounter for screening for lipoid disorders; Z12.9 Encounter for screening for malignant neoplasm, site unspecified; E55.9 Vitamin D deficiency, unspecified

== ENCOUNTER → 2020-11-26 | Outpatient (CLI) | payer OTHER ==
--- NOTE | 2020-11-27 09:18 | REPPI ---
INDICATION: M54.41 LUMBAGO WITH SCIATICA, RIGHT SIDE COMPARISON: None. TECHNIQUE: AP, lateral, coned-down views of the lumbar spine. FINDINGS: Three views of the lumbosacral spine demonstrate satisfactory alignment and lordosis without acute fracture / compression injury or subluxation. Endplate sclerosis with disc space narrowing and early spurring/osteophyte formation primarily involving the visualized lower thoracic spine and to a lesser extent mid to lower lumbar spine. IMPRESSION: 1. No acute fracture / compression injury or subluxation. 2. Minimal scattered spondylosis. <Electronically signed by Luis Perez > 11/27/20 0914
== END ==
LOC: M PLAIMG 15:47
PROVIDERS: ATTEND Physician Assistant
DX: M54.41 Lumbago with sciatica, right side (principal)

== ENCOUNTER → 2020-12-17 | Outpatient (CLI) | payer OTHER ==
--- NOTE | 2020-12-17 19:49 | REPVR ---
PROCEDURE INFORMATION: Exam: MR Lumbar Spine Without Contrast. Exam date and time: 12/17/2020 7:04 PM Age: 35 years old Clinical indication: Low back pain and lumbago with sciatica; Right; Patient HX: Lumbago with sciatica, RT side TECHNIQUE: Imaging protocol: Multiplanar magnetic resonance images of the lumbar spine without intravenous contrast. COMPARISON: SPINE LUMBOSACRAL PARTIAL 11/26/2020 4:05 PM FINDINGS: Vertebrae: Unremarkable. Spinal cord: Normal signal. No cord compression. L1-L2: There is a mild central spinal stenosis at L1-L2 secondary to diffuse annular bulging, thickened ligamentum flavum without significant facet joint arthropathy. L2-L3: There is a mild central spinal stenosis at L2-L3 secondary to diffuse annular bulging, thickened ligamentum flavum with mild facet joint arthropathy. L3-L4: Bilateral facet joint arthropathy L3-L4. No significant disc disease. L4-L5: Bilateral facet joint arthropathy L4-L5. No significant disc disease L5-S1: Bilateral facet joint arthropathy L5-S1. No significant disc disease. Soft tissues: Unremarkable. IMPRESSION: 1. Mild central spinal stenosis L1-L2 and L2-L3. 2. Facet joint arthropathy in the lower 3 lumbar levels without significant disc disease or spinal stenosis. 3. No significant marrow space abnormalities. Electronically signed by: Reggie Moses On 12/17/2020 19:49:18 PM
== END ==
LOC: M RAD 17:41
PROVIDERS: ATTEND Physician Assistant
DX: M54.41 Lumbago with sciatica, right side (principal); M48.061 Spinal stenosis, lumbar region without neurogenic claudication; M46.96 Unspecified inflammatory spondylopathy, lumbar region

== ENCOUNTER → 2021-01-01 | Outpatient (CLI) | payer OTHER ==
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
== END ==
LOC: M PAIN 13:00
PROVIDERS: ATTEND Nurse Practitioner Family
DX: M53.3 Sacrococcygeal disorders, not elsewhere classified (principal); M54.41 Lumbago with sciatica, right side; G40.409 Other generalized epilepsy and epileptic syndromes, not intractable, without status epilepticus; Z79.82 Long term (current) use of aspirin; Z79.899 Other long term (current) drug therapy; F17.210 Nicotine dependence, cigarettes, uncomplicated

== ENCOUNTER → 2021-01-10 | Outpatient (CLI) | payer OTHER | LOC: M LABSMTC 13:51 | PROVIDERS: ATTEND Anesthesiology | DX: Z20.822 Contact with and (suspected) exposure to COVID-19 (principal) ==

== ENCOUNTER → 2021-01-15 | Outpatient (CLI) | payer OTHER ==
[~2021-01-15] MED LIST changes: +BUPIVACAINE HCL 0.25% 30ML VIAL As Ordered ONE; +ISOVUE-M 300 61% 15ML VIAL As Ordered ONE; +LIDOCAINE 1% SDV 30ML VIAL As Ordered ONE; +TRIAMCINOLONE ACETONIDE SUSP 40 MG/ML VIAL (J3301) As Ordered ONE; +diazePAM 5MG TABLET As Ordered ONE; +oxyCODONE 5MG TAB As Ordered ONE
--- NOTE | 2021-01-15 12:14 | REP ---
INDICATION: RIGHT SACROILIAC JOINT BLOCK. COMPARISON: None. TECHNIQUE: Two views right SI joint. 18.0 seconds of fluoroscopy time is reported. FINDINGS: I had a sequence of 2 last image hold fluoroscopically obtained spot radiographs of the SI joint document needle position and contrast injection associated with injection procedure. IMPRESSION: Procedural imaging. <Electronically signed by Marino Maya > 01/15/21 8304
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
== END ==
LOC: M PAIN 10:20
PROVIDERS: ATTEND Anesthesiology
DX: M53.3 Sacrococcygeal disorders, not elsewhere classified (principal); M46.1 Sacroiliitis, not elsewhere classified; F17.210 Nicotine dependence, cigarettes, uncomplicated; E66.01 Morbid (severe) obesity due to excess calories; Z68.41 Body mass index [BMI] 40.0-44.9, adult; Z79.899 Other long term (current) drug therapy
CPT/HCPCS: 27096; J3301; Q9967

== ENCOUNTER → 2021-01-29 | Outpatient (CLI) | payer OTHER ==
[~2021-01-29] MED LIST changes: -BUPIVACAINE HCL 0.25% 30ML VIAL As Ordered ONE; -ISOVUE-M 300 61% 15ML VIAL As Ordered ONE; -LIDOCAINE 1% SDV 30ML VIAL As Ordered ONE; -TRIAMCINOLONE ACETONIDE SUSP 40 MG/ML VIAL (J3301) As Ordered ONE; -diazePAM 5MG TABLET As Ordered ONE; -oxyCODONE 5MG TAB As Ordered ONE
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
== END ==
LOC: M PAIN 13:45
PROVIDERS: ATTEND Nurse Practitioner Family
DX: M79.18 Myalgia, other site (principal); G40.909 Epilepsy, unspecified, not intractable, without status epilepticus; F17.210 Nicotine dependence, cigarettes, uncomplicated; E66.01 Morbid (severe) obesity due to excess calories; Z68.41 Body mass index [BMI] 40.0-44.9, adult; Z79.899 Other long term (current) drug therapy

== ENCOUNTER → 2021-02-09 | Outpatient (CLI) | payer OTHER | LOC: M LABSMTC 11:52 | PROVIDERS: ATTEND Anesthesiology | DX: Z20.822 Contact with and (suspected) exposure to COVID-19 (principal) ==

== ENCOUNTER → 2021-02-14 | Outpatient (CLI) | payer OTHER ==
[~2021-02-14] MED LIST changes: +BUPIVACAINE HCL 0.25% 10ML VIAL As Ordered ONE; +BUPIVACAINE HCL 0.25% 30ML VIAL As Ordered ONE; +TRIAMCINOLONE ACETONIDE SUSP 40 MG/ML VIAL (J3301) As Ordered ONE; +diazePAM 5MG TABLET As Ordered ONE; +oxyCODONE 5MG TAB As Ordered ONE
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
== END ==
LOC: M PAIN 13:40
PROVIDERS: ATTEND Anesthesiology
DX: M79.18 Myalgia, other site (principal); F17.210 Nicotine dependence, cigarettes, uncomplicated; E66.01 Morbid (severe) obesity due to excess calories; Z68.42 Body mass index [BMI] 45.0-49.9, adult; Z79.82 Long term (current) use of aspirin; Z79.899 Other long term (current) drug therapy
CPT/HCPCS: 20552; J3301

== ENCOUNTER → 2021-03-06 | Outpatient (REF) | payer OTHER ==
[~2021-03-06] MED LIST changes: -BUPIVACAINE HCL 0.25% 10ML VIAL As Ordered ONE; -BUPIVACAINE HCL 0.25% 30ML VIAL As Ordered ONE; -TRIAMCINOLONE ACETONIDE SUSP 40 MG/ML VIAL (J3301) As Ordered ONE; -diazePAM 5MG TABLET As Ordered ONE; -oxyCODONE 5MG TAB As Ordered ONE
[2021-03-06 13:51] LABS: BASO # 0.1 10^3/uL (0.0-0.2); BASO % 0.6 % (0.0-1.0); EOS # 0.2 10^3/uL (0.0-0.5); EOS % 1.6 % (0.0-3.0); HEMATOCRIT 49.6 % (42.0-52.0); HEMOGLOBIN 16.4 g/dl (13.5-17.5); LYMPH # 2.1 10^3/uL (1.5-5.0); LYMPH % 22.7 % (24.0-44.0); MEAN CORPUSCULAR HEMOGLOBIN 30.2 pg (27.0-33.0); MEAN CORPUSCULAR HGB CONC 33.1 g/dl (32.0-36.5); MEAN CORPUSCULAR VOLUME 91.3 fl (80.0-96.0); MONO # 0.8 10^3/uL (0.0-0.8); MONO % 8.1 % (2.0-8.0); NEUTROPHILS # 6.2 10^3/uL (1.5-8.5); NEUTROPHILS % 66.6 % (36.0-66.0); PLATELET COUNT, AUTOMATED 226 10^3/uL (150-450); RED BLOOD COUNT 5.43 10^6/uL (4.30-6.10); WHITE BLOOD COUNT 9.4 10^3/uL (4.0-10.0)
== END ==
LOC: M PLALAB 12:48
PROVIDERS: ATTEND Nurse Practitioner Family
DX: K92.1 Melena (principal)

== ENCOUNTER → 2021-03-07 | Outpatient (CLI) | payer OTHER ==
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
== END ==
LOC: M PAIN 13:30
PROVIDERS: ATTEND Nurse Practitioner Family
DX: M79.18 Myalgia, other site (principal); F17.210 Nicotine dependence, cigarettes, uncomplicated; E66.01 Morbid (severe) obesity due to excess calories; Z68.41 Body mass index [BMI] 40.0-44.9, adult; Z79.82 Long term (current) use of aspirin; Z79.899 Other long term (current) drug therapy

== ENCOUNTER → 2021-03-19 | Outpatient (CLI) | payer OTHER ==
--- NOTE | 2021-04-03 02:07 | ECWPNPC ---
PATIENT NAME: TRUDI MARCUS : 1985 GENDER: MALE VISIT DATE: 03/19/2021 DISCHARGE DATE: 03/19/21 1110 VISIT LOCKED DATE TIME: PHYSICIAN: PRINCE DYER PHYSICIAN PAGER NO: ACTIVE RESOURCE: PRINCE DYER REASON FOR APPOINTMENT 1. 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 LAB: URINE TEST GROUP 6-ACETYLMORPHINE SCREEN NEGATIVE (10 - NG/ML) BENZODIAZEPINES SCREEN NEGATIVE (200 - NG/ML) AMPHETAMINE SCREEN NEGATIVE (1000 - NG/ML) BARBITURATES SCREEN NEGATIVE (200 - NG/ML) BUPRENORPHINE SCREEN NEGATIVE (5 - NG/ML) COCAINE SCREEN NEGATIVE (300 - NG/ML) CARISOPRODOL SCREEN NEGATIVE (100 - NG/ML) FENTANYL SCREEN NEGATIVE (2 - NG/ML) GABAPENTIN SCREEN NEGATIVE (1000 - NG/ML) METHADONE SCREEN NEGATIVE (300 - NG/ML) OPIATES SCREEN POSITIVE (300 - NG/ML) OXYCODONE SCREEN NEGATIVE (100 - NG/ML) PHENCYCLIDINE SCREEN NEGATIVE (25 - NG/ML) CREATININE 351.6 (>= 20 MG/DL - MG/DL) PH 5.3 (4.5 - 8.9 - ) CREATININE/SPECIFIC GRAVITY NORMAL (>= 20 MG/DL - ) PH NORMAL (4.5 - 8.9 - ) TCA ANTIDEPRESSANTS SCREEN NEGATIVE (150 - NG/ML) CANNABINOIDS SCREEN NEGATIVE (20 - NG/ML) MDMA SCREEN NEGATIVE (500 - NG/ML) TRAMADOL SCREEN NEGATIVE (100 - NG/ML) REID MARAVILLA 03/19/2021 11:07:09 AM > LAST DOSE: HYDROCODONE 03/19/2021 @10AM PATIENT MEDICATION INVENTORY #1PRESCRIPTON #[id number] OF RX ON 1DRUG AND STRENGTHHYDROCODNE-KAREY 5-325MGFORMULATIONWHITE TAB OBLONG [id number] DRUG IDENTITYT.Eliceo MARAVILLA MA, RN [id number] LABS LAB: OPIATES REFLEX SHS, UR CODEINE NEGATIVE (25 - NG/ML) HYDROCODONE 3380 (25 - NG/ML) HYDROMORPHONE 534 (25 - NG/ML) MORPHINE NEGATIVE (25 - NG/ML) NORHYDROCODONE 2716 (50 - NG/ML) ECLINICALWORKS, SUPPORT 03/23/2021 06:15:08 : THIS ORDER WAS CREATED BY THE INTERFACE. PROCEDURE CODES 78630 NO CHARGE VISIT DISPOSITION & COMMUNICATION ELECTRONICALLY SIGNED BY BILLY RICO ON 04/02/2021 AT 08:05 AM EDT DISCLAIMER : THIS IS A VISIT SUMMARY EXTRACTED FROM THE [employer] CHART. IT IS NOT A COPY OF THE [employer] PROGRESS NOTE. KEVIND
== END ==
LOC: M PAIN 11:00
PROVIDERS: ATTEND Nurse Practitioner Family
DX: K92.1 Melena (principal); Z79.891 Long term (current) use of opiate analgesic; G89.29 Other chronic pain

== ENCOUNTER → 2021-07-17 | Outpatient (REF) | payer OTHER | LOC: M LAB REF 19:23 | PROVIDERS: ATTEND Physician Assistant | DX: D22.5 Melanocytic nevi of trunk (principal) ==

== ENCOUNTER → 2021-07-25 | Outpatient (REF) | payer OTHER | LOC: M LAB REF 14:07 | PROVIDERS: ATTEND Physician Assistant | DX: D22.5 Melanocytic nevi of trunk (principal) ==

== ENCOUNTER → 2021-08-28 | Outpatient (CLI) | payer OTHER ==
[2021-08-28 17:49] LABS: BASO % 0.6 % (0.0-1.0); EOS # 0.2 10^3/uL (0.0-0.5); EOS % 2.7 % (0.0-3.0); HEMATOCRIT 46.2 % (42.0-52.0); HEMOGLOBIN 15.1 g/dl (13.5-17.5); LYMPH # 1.7 10^3/uL (1.5-5.0); MEAN CORPUSCULAR HEMOGLOBIN 29.6 pg (27.0-33.0); MEAN CORPUSCULAR HGB CONC 32.7 g/dl (32.0-36.5); MEAN CORPUSCULAR VOLUME 90.6 fl (80.0-96.0); MONO # 0.5 10^3/uL (0.0-0.8); MONO % 7.6 % (2.0-8.0); NEUTROPHILS # 3.9 10^3/uL (1.5-8.5); NEUTROPHILS % 61.5 % (36.0-66.0); PLATELET COUNT, AUTOMATED 193 10^3/uL (150-450); WHITE BLOOD COUNT 6.3 10^3/uL (4.0-10.0)
[2021-08-28 18:28] LABS: ALBUMIN 3.7 GM/DL (3.2-5.2); ALT/SGPT 49 U/L (12-78); BILIRUBIN,TOTAL 0.4 MG/DL (0.2-1.0); BLOOD UREA NITROGEN 13 MG/DL (7-18); CALCIUM LEVEL 9.1 MG/DL (8.5-10.1); CARBON DIOXIDE LEVEL 29 MEQ/L (21-32); CHLORIDE LEVEL 109 MEQ/L (98-107); CHOLESTEROL LEVEL 178 MG/DL (<200); CHOLESTEROL RISK RATIO 5.562 (<5); CREATININE FOR GFR 0.98 MG/DL (0.70-1.30); FREE T4 0.97 NG/DL (0.76-1.46); GLOMERULAR FILTRATION RATE > 60.0 (>60); GLUCOSE, FASTING 118 MG/DL (70-100); HDL CHOLESTEROL 32 MG/DL (>40); LDL CHOLESTEROL 89 MG/DL (<100); NON-HDL-C 146 MG/DL; POTASSIUM SERUM 3.8 MEQ/L (3.5-5.1); SODIUM LEVEL 139 MEQ/L (136-145); THYROID STIMULATING HORMONE 0.933 uIU/ML (0.358-3.740); TRIGLYCERIDES LEVEL 286 MG/DL (<150)
[2021-08-28 19:58] LABS: HEMOGLOBIN A1c 5.9 %
== END ==
LOC: M PLALAB 13:57
PROVIDERS: ATTEND Nurse Practitioner Family
DX: E78.5 Hyperlipidemia, unspecified (principal); I10 Essential (primary) hypertension

== ENCOUNTER → 2021-10-31 | Outpatient (REF) | LOC: M LABSMTC 13:16 | PROVIDERS: ATTEND Pediatrics | DX: Z20.822 Contact with and (suspected) exposure to COVID-19 (principal) ==

== ENCOUNTER 2022-03-09 10:22 | Emergency (ER) | payer OTHER ==
[~2022-03-09] VITALS: Ht 198.1 cm; Wt 169.7 kg
[2022-03-09] MEDS ORDERED: VENL-37 PO (10:33)
[2022-03-09] MEDS ORDERED: BAYECHW PO (10:33)
[2022-03-09] MEDS ORDERED: LISI10TA22 PO (10:33)
[2022-03-09] MEDS ORDERED: GABA-282 PO (10:33)
[2022-03-09] MEDS ORDERED: GABAPENTIN 300 MG CAP PO ONE (11:25)
[2022-03-09] MEDS ORDERED: KETOROLAC 60MG 2ML VIAL IM ONE (11:25)
[2022-03-09] MEDS ORDERED: LIDOCAINE 5% (LIDODERM) PATCH TD ONE (11:25)
[2022-03-09] MEDS ORDERED: methocarbamoL 750 MG TAB PO ONE (11:25)
[2022-03-09] MEDS ORDERED: METH-1165 PO (12:38)
[2022-03-09] MEDS ORDERED: LIDO5DIS41 TD (12:38)
[2022-03-09] MEDS ORDERED: KETO10TAB PO (12:38)
[2022-03-09] MEDS ORDERED: GABA600T4 PO (12:38)
[2022-03-09 12:45] VITALS: BP 139/90
[2022-03-09] MEDS ORDERED: **NOTE PATIENT COMMENT** MISC XX SCH (21:00)
== END 2022-03-09 12:47 | disposition home or self-care (01) ==
LOC: M ED 10:22
DX: M54.16 Radiculopathy, lumbar region (principal); I10 Essential (primary) hypertension; F41.9 Anxiety disorder, unspecified; F32.9 Major depressive disorder, single episode, unspecified; F17.200 Nicotine dependence, unspecified, uncomplicated; E66.9 Obesity, unspecified; Z79.899 Other long term (current) drug therapy
CPT/HCPCS: 96372; 99283; J1885

== ENCOUNTER 2022-04-10 11:50 | Emergency (ER) | payer OTHER ==
[~2022-04-10] VITALS: Ht 198.1 cm; Wt 170.6 kg
[~2022-04-10 11:50] MED LIST changes: +BAYECHW PO; +GABA-282 PO; +GABA600T4 PO; +LIDO5DIS41 TD; +LISI10TA22 PO; +METH-1165 PO; +VENL-37 PO
[2022-04-10] MEDS ORDERED: LEVE750T5 (12:50)
[2022-04-10 15:49] VITALS: BP 140/91
== END 2022-04-10 16:10 | disposition home or self-care (01) ==
LOC: M ED 11:50
DX: Z77.098 Contact with and (suspected) exposure to other hazardous, chiefly nonmedicinal, chemicals (principal); Y99.0 Civilian activity done for income or pay; I10 Essential (primary) hypertension; F17.290 Nicotine dependence, other tobacco product, uncomplicated; M54.9 Dorsalgia, unspecified; R56.9 Unspecified convulsions; Z79.82 Long term (current) use of aspirin; Z79.899 Other long term (current) drug therapy

== ENCOUNTER 2022-05-13 17:17 | Emergency (ER) | payer OTHER ==
[~2022-05-13] VITALS: Ht 198.1 cm; Wt 168.2 kg
[~2022-05-13 17:17] MED LIST changes: +LEVE750T5
[2022-05-13] MEDS ORDERED: LEXA1TAB (17:28)
[2022-05-13] MEDS ORDERED: PRED20TA PO (22:26)
[2022-05-13 22:44] VITALS: BP 147/93
== END 2022-05-13 22:50 | disposition home or self-care (01) ==
LOC: M ED 17:17
DX: M25.461 Effusion, right knee (principal); Z79.82 Long term (current) use of aspirin; Z79.899 Other long term (current) drug therapy

== ENCOUNTER → 2022-07-14 | Outpatient (CLI) | payer OTHER ==
[~2022-07-14] MED LIST changes: +LEXA1TAB; +PRED20TA PO
== END ==
LOC: M RAD 16:53
PROVIDERS: ATTEND Orthopaedic Surgery Adult Reconstructive Orthopaedic Surgery
DX: S83.241A Other tear of medial meniscus, current injury, right knee, initial encounter (principal); M94.261 Chondromalacia, right knee; M25.461 Effusion, right knee

== ENCOUNTER → 2022-08-23 | Outpatient (CLI) | payer OTHER ==
[~2022-08-23] MED LIST changes: +ACET-897 PO; +IBUP1TAB7 PO; -LEVE750T5; +LEVE750T5 PO; +VENL37TA PO
== END ==
LOC: M EKG 10:52
PROVIDERS: ATTEND Anesthesiology
DX: Z01.818 Encounter for other preprocedural examination (principal); R03.0 Elevated blood-pressure reading, without diagnosis of hypertension; F41.9 Anxiety disorder, unspecified; F32.A Depression, unspecified

== ENCOUNTER → 2022-08-28 | Outpatient (CLI) | payer OTHER | LOC: M LABSMTC 09:29 | PROVIDERS: ATTEND Anesthesiology | DX: Z01.812 Encounter for preprocedural laboratory examination (principal); Z11.52 Encounter for screening for COVID-19 ==

== ENCOUNTER 2022-09-02 11:47 | Day surgery (SDC) | payer OTHER ==
[~2022-09-02] VITALS: Ht 200.7 cm; Wt 172.1 kg
[2022-09-02] MEDS ORDERED: LR 1,000 ML IV SCH ×2 (12:30→16:50)
[2022-09-02] MEDS ORDERED: ACETAMINOPHEN 500 MG TAB PO ONE (12:50)
[2022-09-02] MEDS ORDERED: ONDANSETRON 4MG 2ML VIAL IV ONE (12:50)
[2022-09-02] MEDS ORDERED: CelecoXIB 400 MG CAP PO ONE (12:50)
[2022-09-02] MEDS ORDERED: GABAPENTIN 300 MG CAP PO ONE (12:50)
[2022-09-02] MEDS ORDERED: EPINEPHrine 1MG/ML INJ 30ML MD-VIAL As Ordered ONE (15:00)
[2022-09-02] MEDS ORDERED: BUPIVACAINE/EPIN 0.5% 30 ML VIAL As Ordered ONE (15:00)
[2022-09-02] MEDS ORDERED: propofoL 200 MG/20 ML VIAL As Ordered ONE (15:08)
[2022-09-02] MEDS ORDERED: MIDAZOLAM INJ 2MG/2ML VIAL (J2250 PER 1MG) As Ordered ONE (15:08)
[2022-09-02] MEDS ORDERED: fentaNYL 100 MCG/2 ML INJECTION As Ordered ONE (15:09)
[2022-09-02] MEDS ORDERED: ONDANSETRON 4MG 2ML VIAL As Ordered ONE (15:10)
[2022-09-02] MEDS ORDERED: dexameTHASONE 4 MG/ML 1ML VIAL (J1100 PER 1MG) As Ordered ONE (15:28)
[2022-09-02] MEDS ORDERED: oxyCODONE 5MG TAB PO PRN (16:50)
[2022-09-02] MEDS ORDERED: fentaNYL 100 MCG/2 ML INJECTION IV PRN (16:50)
[2022-09-02] MEDS ORDERED: ONDANSETRON 4MG 2ML VIAL IV PRN (16:50)
[2022-09-02] MEDS: HYDROMORPHONE HCL 0.5 MG/ 0.5 ML SYRINGE (J1170 PER 1) IV PRN ×2 (17:51→17:56)
[2022-09-02 18:40] VITALS: BP 142/89
== END 2022-09-02 18:45 | disposition home or self-care (01) ==
LOC: M SDC 11:47
PROVIDERS: ATTEND Orthopaedic Surgery Adult Reconstructive Orthopaedic Surgery
DX: M23.241 Derangement of anterior horn of lateral meniscus due to old tear or injury, right knee (principal); M94.261 Chondromalacia, right knee; I10 Essential (primary) hypertension; G40.909 Epilepsy, unspecified, not intractable, without status epilepticus; F41.9 Anxiety disorder, unspecified; F32.A Depression, unspecified; F17.200 Nicotine dependence, unspecified, uncomplicated; Z79.899 Other long term (current) drug therapy; Z79.82 Long term (current) use of aspirin
CPT/HCPCS: 29873; 29879; J0171; J1100; J1170; J2250; J2405; J3010

== ENCOUNTER → 2023-02-20 | Outpatient (CLI) | payer OTHER | LOC: M SOG 07:58 | PROVIDERS: ATTEND Orthopaedic Surgery | DX: M25.561 Pain in right knee (principal); M17.11 Unilateral primary osteoarthritis, right knee ==

== ENCOUNTER → 2023-04-24 | Outpatient (CLI) | payer OTHER ==
[2023-04-24 13:33] LABS: BASO % 0.4 % (0.0-1.0); EOS # 0.1 10^3/uL (0.0-0.5); EOS % 2.7 % (0.0-3.0); HEMATOCRIT 46.7 % (42.0-52.0); HEMOGLOBIN 15.1 g/dl (13.5-17.5); LYMPH # 1.2 10^3/uL (1.5-5.0); LYMPH % 22.7 % (24.0-44.0); MEAN CORPUSCULAR HEMOGLOBIN 28.8 pg (27.0-33.0); MEAN CORPUSCULAR HGB CONC 32.3 g/dl (32.0-36.5); MONO # 0.6 10^3/uL (0.0-0.8); MONO % 12.5 % (2.0-8.0); NEUTROPHILS # 3.1 10^3/uL (1.5-8.5); NEUTROPHILS % 61.3 % (36.0-66.0); PLATELET COUNT, AUTOMATED 180 10^3/uL (150-450); RED BLOOD COUNT 5.25 10^6/uL (4.30-6.10); WHITE BLOOD COUNT 5.1 10^3/uL (4.0-10.0)
[2023-04-24 13:44] LABS: ALBUMIN 3.7 G/DL (3.2-5.2); ALKALINE PHOSPHATASE 76 U/L (46-116); ALT/SGPT 139 U/L (7.0-40); AST/SGOT 66 U/L (<34); BILIRUBIN,TOTAL 0.6 MG/DL (0.3-1.2); BLOOD UREA NITROGEN 16 MG/DL (9-23); CALCIUM LEVEL 8.9 MG/DL (8.5-10.1); CARBON DIOXIDE LEVEL 28 MMOL/L (20-31); CHLORIDE LEVEL 106 MMOL/L (98-107); CREATININE FOR GFR 0.91 MG/DL (0.70-1.30); FERRITIN 81.4 NG/ML (10.5-307.3); FREE T4 1.04 NG/DL (0.89-1.76); GLOMERULAR FILTRATION RATE > 60.0 (>60); GLUCOSE, FASTING 129 MG/DL (60-100); POTASSIUM SERUM 4.3 MMOL/L (3.5-5.1); SODIUM LEVEL 139 MMOL/L (136-145); THYROID STIMULATING HORMONE 2.548 uIU/ML (0.55-4.78); TOTAL 25(OH) VITAMIN D 16.3 NG/ML (20.0-100.0); TOTAL PROTEIN 6.7 G/DL (5.7-8.2); VITAMIN B12 LEVEL 545 PG/ML (211-911)
[2023-04-24 13:51] LABS: ERYTHROCYTE SEDIMENTATION RATE 17 mm/hr (0-15)
[2023-04-24 13:59] LABS: HEMOGLOBIN A1c 7.6 % (4.0-6.0)
[2023-04-27 19:07] LABS: LEVETIRACETAM (KEPPRA) 21.1 ug/mL (10.0-40.0)
== END ==
LOC: M PLALAB 09:17
PROVIDERS: ATTEND Physician Assistant
DX: R53.83 Other fatigue (principal); R06.83 Snoring; R40.0 Somnolence; R53.1 Weakness; G40.909 Epilepsy, unspecified, not intractable, without status epilepticus; Z13.220 Encounter for screening for lipoid disorders

== ENCOUNTER → 2023-05-25 | Outpatient (CLI) | payer OTHER | LOC: M SLEEP HO 10:58 | PROVIDERS: ATTEND Physician Assistant | DX: G47.33 Obstructive sleep apnea (adult) (pediatric) (principal) ==

== ENCOUNTER → 2023-07-24 | Outpatient (CLI) | payer OTHER ==
[~2023-07-24] MED LIST changes: +MECL-209 PO; -MECL1TAB31 PO
[2023-07-24 16:38] LABS: ALKALINE PHOSPHATASE 59 U/L (46-116); ALT/SGPT 54 U/L (7.0-40); AST/SGOT 25 U/L (<34); BILIRUBIN,TOTAL 0.6 MG/DL (0.3-1.2); BLOOD UREA NITROGEN 18 MG/DL (9-23); CALCIUM LEVEL 8.9 MG/DL (8.5-10.1); CARBON DIOXIDE LEVEL 31 MMOL/L (20-31); CHLORIDE LEVEL 108 MMOL/L (98-107); CHOLESTEROL LEVEL 166 MG/DL (<200); CHOLESTEROL RISK RATIO 6.01 (<5); CREATININE FOR GFR 0.93 MG/DL (0.70-1.30); GLOMERULAR FILTRATION RATE > 60.0 (>60); GLUCOSE, FASTING 90 MG/DL (60-100); HDL CHOLESTEROL 27.6 MG/DL (>40); NON-HDL-C 138.4 MG/DL; POTASSIUM SERUM 3.9 MMOL/L (3.5-5.1); SODIUM LEVEL 142 MMOL/L (136-145); TOTAL PROTEIN 6.7 G/DL (5.7-8.2); TRIGLYCERIDES LEVEL 202 MG/DL (<150)
[2023-07-24 17:28] LABS: HEMOGLOBIN A1c 5.3 % (4.0-6.0)
== END ==
LOC: M PLALAB 14:29
PROVIDERS: ATTEND Physician Assistant
DX: E11.8 Type 2 diabetes mellitus with unspecified complications (principal); R74.8 Abnormal levels of other serum enzymes; Z13.220 Encounter for screening for lipoid disorders

== ENCOUNTER → 2023-08-05 | Outpatient (CLI) | payer OTHER | LOC: M SOG 15:00 | PROVIDERS: ATTEND Orthopaedic Surgery | DX: M25.561 Pain in right knee (principal); M25.461 Effusion, right knee ==

== ENCOUNTER 2024-03-13 16:23 | Emergency (ER) | payer OTHER ==
[~2024-03-13] VITALS: Ht 200.7 cm; Wt 167.0 kg
[2024-03-13 16:47] LABS: IONIZED CALCIUM 4.8 MG/DL (4.5-5.3)
[2024-03-13 16:56] LABS: BASO # 0.1 10^3/uL (0.0-0.2); BASO % 0.6 % (0.0-1.0); EOS # 0.2 10^3/uL (0.0-0.5); EOS % 1.7 % (0.0-3.0); HEMATOCRIT 48.5 % (42.0-52.0); HEMOGLOBIN 16.1 g/dl (13.5-17.5); LYMPH # 2.8 10^3/uL (1.5-5.0); LYMPH % 30.6 % (24.0-44.0); MEAN CORPUSCULAR HEMOGLOBIN 29.1 pg (27.0-33.0); MEAN CORPUSCULAR HGB CONC 33.2 g/dl (32.0-36.5); MEAN CORPUSCULAR VOLUME 87.7 fl (80.0-96.0); MONO # 0.8 10^3/uL (0.0-0.8); MONO % 8.7 % (2.0-8.0); NEUTROPHILS # 5.3 10^3/uL (1.5-8.5); NEUTROPHILS % 57.5 % (36.0-66.0); PLATELET COUNT, AUTOMATED 300 10^3/uL (150-450); RED BLOOD COUNT 5.53 10^6/uL (4.30-6.10); WHITE BLOOD COUNT 9.3 10^3/uL (4.0-10.0)
[2024-03-13] MEDS: NS 1,000 ML IV ONE (16:58)
[2024-03-13 17:12] LABS: ETHYL ALCOHOL (ETHANOL) < 0.003 % (0.000-0.010)
[2024-03-13] MEDS: ACETAMINOPHEN 500 MG TAB PO ONE (17:12)
[2024-03-13 17:14] LABS: ALBUMIN 4.1 G/DL (3.2-5.2); ALKALINE PHOSPHATASE 62 U/L (46-116); ALT/SGPT 61 U/L (7.0-40); AST/SGOT 28 U/L (<34); BILIRUBIN,DIRECT 0.2 MG/DL (<0.4); BILIRUBIN,TOTAL 0.5 MG/DL (0.3-1.2); BLOOD UREA NITROGEN 18 MG/DL (9-23); CALCIUM LEVEL 9.6 MG/DL (8.5-10.1); CARBON DIOXIDE LEVEL 18 MMOL/L (20-31); CHLORIDE LEVEL 107 MMOL/L (98-107); CREATININE FOR GFR 0.97 MG/DL (0.70-1.30); GLOMERULAR FILTRATION RATE > 60.0 (>60); GLUCOSE, FASTING 114 MG/DL (60-100); MAGNESIUM LEVEL 2.4 MG/DL (1.8-2.4); PHOSPHORUS LEVEL 2.2 MG/DL (2.5-4.9); POTASSIUM SERUM 4.2 MMOL/L (3.5-5.1); SODIUM LEVEL 142 MMOL/L (136-145); TOTAL PROTEIN 7.1 G/DL (5.7-8.2)
[2024-03-13 17:17] LABS: THYROID STIMULATING HORMONE 2.604 uIU/ML (0.55-4.78)
[2024-03-13 17:48] LABS: AMPHETAMINES LEVEL URINE NEGATIVE (NEGATIVE); BARBITURATES URINE NEGATIVE (NEGATIVE)
[2024-03-13 17:49] LABS: BENZODIAZEPINES URINE NEGATIVE (NEGATIVE); CANNABINOIDS URINE NEGATIVE (NEGATIVE); COCAINE METABOLITE URINE NEGATIVE (NEGATIVE); METHADONE URINE NEGATIVE (NEGATIVE); OPIATES URINE NEGATIVE (NEGATIVE); PHENCYCLIDINE URINE NEGATIVE (NEGATIVE)
[2024-03-13] MEDS ORDERED: TRIL600T PO (18:13)
[2024-03-13] MEDS: OXcarbazepine 300 MG TAB PO STA (18:15)
[2024-03-13 19:13] VITALS: BP 158/89; TEMP 98.6; O2SAT 97
== END 2024-03-13 19:31 | disposition home or self-care (01) ==
LOC: M ED 16:23 → EDBD 16:23 → M ED 19:31
DX: G40.909 Epilepsy, unspecified, not intractable, without status epilepticus (principal); Q07.00 Arnold-Chiari syndrome without spina bifida or hydrocephalus; I10 Essential (primary) hypertension; E78.5 Hyperlipidemia, unspecified; Z87.891 Personal history of nicotine dependence; Z79.82 Long term (current) use of aspirin; Z79.811 Long term (current) use of aromatase inhibitors; Z79.899 Other long term (current) drug therapy

== ENCOUNTER → 2024-03-15 | Outpatient (CLI) | payer OTHER ==
[~2024-03-15] MED LIST changes: +TRIL600T PO
== END ==
LOC: M PLAIMG 12:18
PROVIDERS: ATTEND Physician Assistant Medical
DX: M25.512 Pain in left shoulder (principal); M54.2 Cervicalgia

== ENCOUNTER → 2024-03-18 | Outpatient (CLI) | payer OTHER | LOC: M LAB 16:38 | PROVIDERS: ATTEND Psychiatry & Neurology Neurology | DX: R56.9 Unspecified convulsions (principal) ==

== ENCOUNTER → 2024-03-18 | Outpatient (CLI) | payer OTHER ==
[2024-03-18 12:09] LABS: BASO % 0.6 % (0.0-1.0); EOS # 0.2 10^3/uL (0.0-0.5); EOS % 2.7 % (0.0-3.0); HEMATOCRIT 46.7 % (42.0-52.0); HEMOGLOBIN 15.2 g/dl (13.5-17.5); LYMPH # 1.5 10^3/uL (1.5-5.0); LYMPH % 23.5 % (24.0-44.0); MEAN CORPUSCULAR HEMOGLOBIN 28.6 pg (27.0-33.0); MEAN CORPUSCULAR HGB CONC 32.5 g/dl (32.0-36.5); MEAN CORPUSCULAR VOLUME 87.8 fl (80.0-96.0); MONO # 0.5 10^3/uL (0.0-0.8); MONO % 8.7 % (2.0-8.0); NEUTROPHILS % 64.2 % (36.0-66.0); PLATELET COUNT, AUTOMATED 216 10^3/uL (150-450); RED BLOOD COUNT 5.32 10^6/uL (4.30-6.10); WHITE BLOOD COUNT 6.2 10^3/uL (4.0-10.0)
[2024-03-18 12:29] LABS: HEMOGLOBIN A1c 5.8 % (4.0-6.0)
[2024-03-18 12:47] LABS: ALBUMIN 3.9 G/DL (3.2-5.2); ALKALINE PHOSPHATASE 62 U/L (46-116); ALT/SGPT 62 U/L (7.0-40); AST/SGOT 32 U/L (<34); BILIRUBIN,TOTAL 0.6 MG/DL (0.3-1.2); BLOOD UREA NITROGEN 18 MG/DL (9-23); CALCIUM LEVEL 9.2 MG/DL (8.5-10.1); CARBON DIOXIDE LEVEL 29 MMOL/L (20-31); CHLORIDE LEVEL 107 MMOL/L (98-107); CHOLESTEROL LEVEL 151 MG/DL (<200); CHOLESTEROL RISK RATIO 5.47 (<5); CREATININE FOR GFR 0.97 MG/DL (0.70-1.30); GLOMERULAR FILTRATION RATE > 60.0 (>60); GLUCOSE, FASTING 96 MG/DL (60-100); HDL CHOLESTEROL 27.6 MG/DL (>40); LDL CHOLESTEROL 95.2 MG/DL (<100); NON-HDL-C 123.4 MG/DL; POTASSIUM SERUM 4.5 MMOL/L (3.5-5.1); SODIUM LEVEL 141 MMOL/L (136-145); TOTAL PROTEIN 6.9 G/DL (5.7-8.2); TRIGLYCERIDES LEVEL 141 MG/DL (<150)
[2024-03-18 12:48] LABS: FREE T4 1.09 NG/DL (0.89-1.76); THYROID STIMULATING HORMONE 2.218 uIU/ML (0.55-4.78); TOTAL 25(OH) VITAMIN D 9.8 NG/ML (20.0-100.0)
== END ==
LOC: M PLALAB 11:31
PROVIDERS: ATTEND Physician Assistant
DX: E66.9 Obesity, unspecified (principal)

== ENCOUNTER → 2024-04-05 | Outpatient (CLI) | payer OTHER ==
[2024-04-05 19:28] LABS: BASO % 0.6 % (0.0-1.0); EOS # 0.2 10^3/uL (0.0-0.5); EOS % 2.2 % (0.0-3.0); HEMATOCRIT 43.7 % (42.0-52.0); HEMOGLOBIN 14.9 g/dl (13.5-17.5); LYMPH # 1.8 10^3/uL (1.5-5.0); LYMPH % 26.7 % (24.0-44.0); MEAN CORPUSCULAR HEMOGLOBIN 30.3 pg (27.0-33.0); MEAN CORPUSCULAR HGB CONC 34.1 g/dl (32.0-36.5); MEAN CORPUSCULAR VOLUME 88.8 fl (80.0-96.0); MONO # 0.4 10^3/uL (0.0-0.8); MONO % 5.8 % (2.0-8.0); NEUTROPHILS # 4.3 10^3/uL (1.5-8.5); NEUTROPHILS % 64.3 % (36.0-66.0); PLATELET COUNT, AUTOMATED 233 10^3/uL (150-450); RED BLOOD COUNT 4.92 10^6/uL (4.30-6.10); WHITE BLOOD COUNT 6.7 10^3/uL (4.0-10.0)
[2024-04-05 19:51] LABS: ALBUMIN 4.3 G/DL (3.2-5.2); ALKALINE PHOSPHATASE 91 U/L (46-116); ALT/SGPT 66 U/L (7.0-40); AST/SGOT 31 U/L (<34); BILIRUBIN,TOTAL 0.4 MG/DL (0.3-1.2); BLOOD UREA NITROGEN 18 MG/DL (9-23); CALCIUM LEVEL 9.3 MG/DL (8.5-10.1); CARBON DIOXIDE LEVEL 27 MMOL/L (20-31); CHLORIDE LEVEL 105 MMOL/L (98-107); CREATININE FOR GFR 0.91 MG/DL (0.70-1.30); GLOMERULAR FILTRATION RATE > 60.0 (>60); GLUCOSE, FASTING 110 MG/DL (60-100); POTASSIUM SERUM 3.8 MMOL/L (3.5-5.1); SODIUM LEVEL 138 MMOL/L (136-145); TOTAL PROTEIN 6.6 G/DL (5.7-8.2)
== END ==
LOC: M PLALAB 15:04
PROVIDERS: ATTEND Psychiatry & Neurology Neurology
DX: R56.9 Unspecified convulsions (principal)

== ENCOUNTER 2024-12-22 15:18 | Emergency (ER) | payer OTHER ==
[~2024-12-22] VITALS: Ht 198.1 cm; Wt 178.9 kg
[~2024-12-22 15:18] MED LIST changes: +GABA-1172 PO; +GABA-1490 PO; -GABA-282 PO; -GABA600T4 PO
[2024-12-22 16:15] LABS: BASO % 0.4 % (0.0-1.0); EOS # 0.1 10^3/uL (0.0-0.5); EOS % 0.7 % (0.0-3.0); HEMATOCRIT 46.8 % (42.0-52.0); HEMOGLOBIN 15.6 g/dl (13.5-17.5); LYMPH # 1.3 10^3/uL (1.5-5.0); LYMPH % 12.9 % (24.0-44.0); MEAN CORPUSCULAR HEMOGLOBIN 28.8 pg (27.0-33.0); MEAN CORPUSCULAR HGB CONC 33.3 g/dl (32.0-36.5); MEAN CORPUSCULAR VOLUME 86.3 fl (80.0-96.0); MONO # 0.5 10^3/uL (0.0-0.8); MONO % 4.5 % (2.0-8.0); NEUTROPHILS % 80.5 % (36.0-66.0); PLATELET COUNT, AUTOMATED 220 10^3/uL (150-450); RED BLOOD COUNT 5.42 10^6/uL (4.30-6.10)
[2024-12-22 16:43] LABS: BLOOD UREA NITROGEN 11 MG/DL (9-23); CALCIUM LEVEL 8.6 MG/DL (8.5-10.1); CARBON DIOXIDE LEVEL 22 MMOL/L (20-31); CHLORIDE LEVEL 105 MMOL/L (98-107); GLOMERULAR FILTRATION RATE > 60.0 (>60); GLUCOSE, FASTING 144 MG/DL (60-100); POTASSIUM SERUM 3.7 MMOL/L (3.5-5.1); SODIUM LEVEL 141 MMOL/L (136-145)
[2024-12-22 17:04] LABS: AMPHETAMINES LEVEL URINE NEGATIVE (NEGATIVE); BARBITURATES URINE NEGATIVE (NEGATIVE)
[2024-12-22 17:05] LABS: BENZODIAZEPINES URINE NEGATIVE (NEGATIVE); CANNABINOIDS URINE NEGATIVE (NEGATIVE); COCAINE METABOLITE URINE NEGATIVE (NEGATIVE); METHADONE URINE NEGATIVE (NEGATIVE); OPIATES URINE NEGATIVE (NEGATIVE); PHENCYCLIDINE URINE NEGATIVE (NEGATIVE)
[2024-12-22 17:30] VITALS: BP 129/63; TEMP 97.7; O2SAT 98
[2024-12-22] MEDS: levETIRAcetam 250MG TABLET (KEPPRA) PO ONE (17:36)
[2024-12-22] MEDS: ACETAMINOPHEN 500 MG TAB PO ONE (17:36)
== END 2024-12-22 17:51 | disposition home or self-care (01) ==
LOC: EDBD 15:18 → M ED 15:18
DX: G40.909 Epilepsy, unspecified, not intractable, without status epilepticus (principal); E78.5 Hyperlipidemia, unspecified; Z79.899 Other long term (current) drug therapy; I10 Essential (primary) hypertension; G89.29 Other chronic pain; M54.9 Dorsalgia, unspecified

== ENCOUNTER → 2025-08-28 | Outpatient (REF) | payer OTHER, MEDICAID ==
[~2025-08-28] MED LIST changes: -IBUP-1022 PO; +IBUP600T42 PO; +LIDO1ADH93 TD; -LIDO5DIS41 TD
[2025-08-28 15:20] LABS: CREATININE, URINE 130.4 MG/DL; MALB URINE SIEMENS < 3.0 MG/L
[2025-08-28 17:30] LABS: ALT/SGPT 20 U/L (7.0-40); AST/SGOT 14 U/L (<34); CALCIUM LEVEL 9.0 MG/DL (8.5-10.1); CARBON DIOXIDE LEVEL 27 MMOL/L (20-31); CHLORIDE LEVEL 107 MMOL/L (98-107); CHOLESTEROL LEVEL 165 MG/DL (<200); CHOLESTEROL RISK RATIO 6.52 (<5); CREATININE FOR GFR 0.97 MG/DL (0.70-1.30); GLOMERULAR FILTRATION RATE > 90.0 (>60); LDL CHOLESTEROL 107.3 MG/DL (<100); NON-HDL-C 139.7 MG/DL; POTASSIUM SERUM 4.8 MMOL/L (3.5-5.1); SODIUM LEVEL 141 MMOL/L (136-145); TRIGLYCERIDES LEVEL 162 MG/DL (<150)
[2025-08-28 17:52] LABS: ESTIMATED AVERAGE GLUCOSE 108.0 MG/DL (60-110)
== END ==
LOC: M LAB REF 14:26
PROVIDERS: ATTEND Student in an Organized Health Care Education/Training Program
DX: E11.9 Type 2 diabetes mellitus without complications (principal); Z68.39 Body mass index [BMI] 39.0-39.9, adult